=== PATIENT | male | born 1965 | race Caucasian/White ===

== ENCOUNTER 2017-08-04 18:01 | Emergency (ER) | payer OTHER ==
[~2017-08-04] VITALS: Ht 172.7 cm; Wt 120.2 kg
[~2017-08-04 18:01] MED LIST: CRESTOR5 MG; LOSARTAN-HCTZ1 EAC2; OMEPRAZOLE40 MG
[2017-08-04] MEDS ORDERED: CLONIDINE HCL 0.2 MG TAB PO ONE (18:30)
[2017-08-04] MEDS ORDERED: LIDOCAINE HCL 1% LOCAL INJ 20 ML VIAL INJ ONE (18:30)
[2017-08-04] MEDS ORDERED: BACITRACIN ZINC 0.9GM TP ONE (19:28)
[2017-08-04 19:41] VITALS: BP 195/115
== END 2017-08-04 19:48 | disposition home or self-care (01) ==
LOC: ER 18:01
DX: S61.012A Laceration without foreign body of left thumb without damage to nail, initial encounter (principal); W26.0XXA Contact with knife, initial encounter; Y93.89 Activity, other specified; Y92.008 Other place in unspecified non-institutional (private) residence as the place of occurrence of the external cause; I10 Essential (primary) hypertension
CPT/HCPCS: 12001; 99283; J2001

== ENCOUNTER 2019-03-29 07:57 | Emergency (ER) | payer OTHER ==
[~2019-03-29] VITALS: Ht 172.7 cm; Wt 120.2 kg
[2019-03-29] MEDS ORDERED: ONDANSETRON HCL INJ 2MG/ML 2ML 2 MG/ML VIAL IV STA (07:59)
[2019-03-29] MEDS ORDERED: KETOROLAC TROMETHAMINE 30 MG/ML VIAL IV STA (07:59)
[2019-03-29] MEDS ORDERED: SODIUM CHLORIDE 0.9% 1000ML 1,000 ML IV STA (07:59)
[2019-03-29] MEDS ORDERED: MORPHINE SULFATE INJ 4 MG/ML INJ 1ML IV NR (08:00)
[2019-03-29] MEDS ORDERED: SODIUM CHLORIDE 0.9% 1000ML 1,000 ML ONE (08:09)
[2019-03-29] MEDS ORDERED: ONDANSETRON HCL INJ 2MG/ML 2ML 2 MG/ML VIAL IV NR (08:15)
--- NOTE | 2019-03-29 08:20 | NUR ---
PATIENT BLOOD PRESSURE ELEVATED. HE STATED HE DID TAKE HIS MEDICATION THIS MORNING, BUT HE IS ALSO IN 10 PAIN
[2019-03-29 08:29] LABS: BASOPHILS # (AUTO) 0.1 (0.0-0.1); BASOPHILS % 0.8 % (0.0-1.0); EOSINOPHILS # (AUTO) 0.2 (0.0-0.4); EOSINOPHILS % 3.7 % (0.0-6.0); HEMATOCRIT 47.8 % (38.2-49.6); HEMOGLOBIN 16.8 g/dL (14.0-18.0); LYMPHOCYTES % 33.4 % (18.0-39.1); MEAN CORPUSCULAR HEMOGLOBIN 30.2 pg (28-32); MEAN CORPUSCULAR HGB CONC 35.1 g/dL (31-35); MEAN CORPUSCULAR VOLUME 85.8 fL (81-99); MONOCYTES # (AUTO) 0.5 (0.2-0.8); MONOCYTES % 8.4 % (4.4-11.3); NEUTROPHILS # (AUTO) 3.2 (2.1-6.9); NEUTROPHILS % 53.4 % (38.7-80.0); PLATELET COUNT 216 x10e3/uL (140-360); RED BLOOD COUNT 5.57 x10e6/uL (4.3-5.7); RED CELL DISTRIBUTION WIDTH 13.4 % (11.7-14.4)
[2019-03-29 08:40] LABS: ANION GAP 14.8 mmol/L (8-16); BLOOD UREA NITROGEN 14 mg/dL (7-26); BUN/CREATININE RATIO 13 (6-25); CARBON DIOXIDE 26 mmol/L (22-29); CHLORIDE 104 mmol/L (98-107); CREATININE, SERUM 1.12 mg/dL (0.72-1.25); EST GLOMERULAR FILTRATION RATE > 60 ML/MIN (60-); GLUCOSE 133 mg/dL (74-118); POTASSIUM 3.8 mmol/L (3.5-5.1); SODIUM 141 mmol/L (136-145)
[2019-03-29 09:17] LABS: BILIRUBIN,URINE NEGATIVE (NEGATIVE); CLARITY,URINE CLEAR (CLEAR); COLOR,URINE YELLOW (YELLOW); KETONES,URINE NEGATIVE (NEGATIVE); LEUKOCYTE ESTERASE ,URINE NEGATIVE (NEGATIVE); NITRITE,URINE NEGATIVE (NEGATIVE); PROTEIN,URINE DIPSTICK NEGATIVE (NEGATIVE); URINE UROBILINOGEN 0.2 mg/dL (0.2 - 1)
--- NOTE | 2019-03-29 09:17 | Diagnostic Imaging Report ---
EXAM: CT Abdomen and Pelvis WITHOUT contrast INDICATION: ^STONE PROTOCOL ^[id number] ^0832 ^Y COMPARISON: None. TECHNIQUE: Abdomen and pelvis were scanned utilizing a multidetector helical scanner from the lung base to the pubic symphysis without administration of IV contrast. Absence of intravenous contrast decreases sensitivity for detection of focal lesions and vascular pathology. Coronal and sagittal reformations were obtained. Routine protocol was performed. IV CONTRAST: None ORAL CONTRAST: None. COMPLICATIONS: None RADIATION DOSE: Total DLP: 957.63 mGy*cm Estimated effective dose: (DLP x 0.015 x size factor) mSv CTDIvol has been reviewed. It is below the limits set by the Radiation Protocol Committee (RPC). FINDINGS: LINES and TUBES: None. LOWER THORAX: 9 mm nodule abutting the right minor fissure. HEPATOBILIARY: Unenhanced liver is unremarkable. No biliary ductal dilation. GALLBLADDER: No radio-opaque stones or sludge. No wall thickening. SPLEEN: No splenomegaly. PANCREAS: No focal masses or ductal dilatation. Nodular density abutting the pancreatic tail, could represent pancreatic tissue versus splenule. ADRENALS: No adrenal nodules KIDNEYS/URETERS: No hydronephrosis. Exophytic 2.2 cm right renal inferior pole hyperdense lesion. There is also a left inferior pole subcentimeter exophytic hypodensity. No stones. Bilateral perinephric fat stranding, left greater than right. GI TRACT: No abnormal distention, wall thickening, or evidence of bowel obstruction. Appendix is normal. PELVIC ORGANS/BLADDER: 2 to 3 mm calculus in the dependent left portion of the bladder, adjacent to the left ureterovesical junction Prostate calcifications. LYMPH NODES: No lymphadenopathy. VESSELS: Unremarkable. PERITONEUM / RETROPERITONEUM: No free air or fluid. BONES: Unremarkable. SOFT TISSUES: Unremarkable. IMPRESSION: 1. No nephrolithiasis or evidence of obstructive urolithiasis. 2. Increased left perinephric stranding and a 2 mm calculus in left posterior bladder, adjacent to the left ureterovesical junction, representing a recently passed stone. 3. Renal lesions can be further evaluated with nonurgent renal ultrasound. 4. 9 mm right middle lobe nodule abutting the right minor fissure. Recommend follow-up with chest CT in 6 months to ensure stability. Signed by: Dr. Bull Moreira MD on 03/29/2019 9:14 AM
[2019-03-29 09:28] LABS: BACTERIA,URINE RARE /HPF; EPITHELIAL CELLS,URINE FEW /LPF; RBC,URINE 0-5 /HPF (0-5); WBC,URINE (MAN) 0-5 /HPF (0-5)
--- NOTE | 2019-03-29 09:34 | NUR ---
DR. DE LEÓN AT BEDSIDE UPDATING PATIENT ON RESULTS. PATIENT GIVEN URINAL AND STRAINER FOR URINE
[2019-03-29] MEDS: HYDROMORPHONE 1MG/1ML INJ IV NR ×2 (09:45→10:23)
== END 2019-03-29 10:29 | disposition home or self-care (01) ==
LOC: ER 07:57
DX: R10.9 Unspecified abdominal pain (principal); R11.2 Nausea with vomiting, unspecified; M54.5 Low back pain; N20.1 Calculus of ureter
CPT/HCPCS: 36415; 74176; 80048; 81001; 85025; 99284; J1170; J1885; J2270; J2405; J7030